=== PATIENT | female | born 1960 | race Caucasian/White ===

== ENCOUNTER 2017-02-11 07:44 | Inpatient (IN) | payer OTHER ==
[~2017-02-11] VITALS: Ht 160 cm; Wt 73.5 kg
[~2017-02-11 07:44] MED LIST: CYMBALTA30 MG PO; ERGOCALCIF50000 UNIT PO; FLOVENT 11120 INHALA IH; IRON325 MG PO; KLONOPIN0.5 M1 PO; LEXAPRO20 MG PO; LORCET PLUS 7.1 EACH PO; LOVASTATIN20 MG PO; MELOXICAM7.5 MG PO; MULTIPLE VITAM1 EAC1 PO; MYSOLINE50 MG PO; TENORMIN25 MG PO; VENTOLIN HFA18 GM IH; ZOLOFT100 MG PO
[2017-02-11 08:20] VITALS: BP 122/76
[2017-02-11 13:00] VITALS: BP 136/72
[2017-02-11 15:41] VITALS: BP 151/75
[2017-02-11 19:35] VITALS: BP 145/87
[2017-02-12] VITALS (7 sets, daily range): BP systolic 106–183; BP diastolic 58–88
[2017-02-12 05:22] LABS: HEMATOCRIT 31.3 % (36.0-46.0); MCV 89.9 FL (83-99)
[2017-02-12 09:44] LABS: POINT-OF-CARE METER ID UU13113712
[2017-02-13] VITALS (7 sets, daily range): BP systolic 118–145; BP diastolic 61–75
[2017-02-13 05:57] LABS: HEMATOCRIT 29.6 % (36.0-46.0); MCV 88.4 FL (83-99)
[2017-02-13 10:59] LABS: CHLORIDE 106 mEq/L (99-109); POTASSIUM 3.4 mEq/L (3.7-5.4); SODIUM 138 mEq/L (136-147)
[2017-02-13 11:01] LABS: GLUCOSE 114 mg/dL (70-99)
[2017-02-13 11:02] LABS: ANION GAP 9 MEQ/L (2-14)
[2017-02-13 11:05] LABS: GFR ESTIMATE (CALCULATED) > 59 mL/min/
[2017-02-13 11:06] LABS: UREA NITROGEN (BUN) 7 mg/dL (9-23)
[2017-02-14 00:11] VITALS: BP 146/76
[2017-02-14 06:49] LABS: ANION GAP 7 MEQ/L (2-14); CHLORIDE 105 MEQ/L (99-109); GFR ESTIMATE (CALCULATED) > 59 mL/min/; GLUCOSE 102 mg/dL (70-99); SAMPLE HEMOLYSIS CHECK 0; SAMPLE ICTERIC CHECK 0; SAMPLE LIPEMIA CHECK 0; SODIUM 139 MEQ/L (136-147); UREA NITROGEN (BUN) 6 mg/dL (9-23)
[2017-02-14 06:50] LABS: POTASSIUM 4.2 MEQ/L (3.7-5.4)
[2017-02-14 07:55] VITALS: BP 117/59
[2017-02-14] MEDS ORDERED: OXYCODONE HCL5 MG PO (08:37)
[2017-02-14] MEDS ORDERED: OXYCONTIN10 MG PO (08:37)
[2017-02-14] MEDS ORDERED: XARELTO10 MG PO (08:37)
[2017-02-14] MEDS ORDERED: CELECOXIB200 MG PO (08:37)
[2017-02-14 11:52] VITALS: BP 114/72
== END 2017-02-14 12:22 | DRG 470 ==
LOC: 2SOUTH 07:44 → 3WEST 12:44 → 2SOUTH 15:33 → 3WEST 02-14 12:22
PROVIDERS: Orthopaedic Surgery; Physician Assistant Surgical
PROC: 0SRD0J9 Replacement of Left Knee Joint with Synthetic Substitute, Cemented, Open Approach (ICD-10-PCS; principal; 2017-02-11)
DX: M17.12 Unilateral primary osteoarthritis, left knee (principal); I10 Essential (primary) hypertension; G89.29 Other chronic pain; M54.9 Dorsalgia, unspecified; F32.9 Major depressive disorder, single episode, unspecified; J45.909 Unspecified asthma, uncomplicated; E55.9 Vitamin D deficiency, unspecified; E61.1 Iron deficiency; Z96.651 Presence of right artificial knee joint; Z98.1 Arthrodesis status; Z98.84 Bariatric surgery status
CPT/HCPCS: 80048; 82948; 85014; 85018; 93005; 94640; 94640 76; 97530 GO; 97530 GP; 99202; C1713; J0131; J0690; J1100; J1885; J2250; J2405; J2795; J3010; J7040; J7050; J7120; L1820

== ENCOUNTER → 2017-06-21 | Outpatient (CLI) | payer OTHER ==
[~2017-06-21] VITALS: Ht 160 cm; Wt 68.2 kg
[~2017-06-21] MED LIST changes: +CELECOXIB200 MG PO; +HYDROCODON-ACE1 EAC8 PO; +OXYCODONE HCL5 MG PO; +OXYCONTIN10 MG PO; +XARELTO10 MG PO
== END | disposition home or self-care (01) ==
LOC: AMB 09:21
PROC: 0DBH8ZX Excision of Cecum, Via Natural or Artificial Opening Endoscopic, Diagnostic (ICD-10-PCS; principal; 2017-06-21)
DX: Z12.11 Encounter for screening for malignant neoplasm of colon (principal); D12.0 Benign neoplasm of cecum; K57.30 Diverticulosis of large intestine without perforation or abscess without bleeding; D50.9 Iron deficiency anemia, unspecified; Z98.84 Bariatric surgery status; Z98.1 Arthrodesis status; Z90.710 Acquired absence of both cervix and uterus; Z90.721 Acquired absence of ovaries, unilateral; J45.909 Unspecified asthma, uncomplicated; F41.9 Anxiety disorder, unspecified; F32.9 Major depressive disorder, single episode, unspecified; K21.9 Gastro-esophageal reflux disease without esophagitis; E78.01 Familial hypercholesterolemia; E78.1 Pure hyperglyceridemia; M19.90 Unspecified osteoarthritis, unspecified site; F42.9 Obsessive-compulsive disorder, unspecified; K44.9 Diaphragmatic hernia without obstruction or gangrene; I10 Essential (primary) hypertension; E21.3 Hyperparathyroidism, unspecified; Z82.0 Family history of epilepsy and other diseases of the nervous system; Z81.1 Family history of alcohol abuse and dependence; Z81.4 Family history of other substance abuse and dependence; Z82.49 Family history of ischemic heart disease and other diseases of the circulatory system
CPT/HCPCS: 88305; J3010